=== PATIENT | female | born 1945 | race Caucasian/White ===

== ENCOUNTER 2022-09-21 06:57 | Outpatient (CLI) | payer MEDICARE ==
[~2022-09-21] VITALS: Ht 167.6 cm; Wt 61.4 kg
== END 2022-09-21 11:55 ==
LOC: PREOP 06:57
PROVIDERS: ATTEND Specialist
DX: Z01.818 Encounter for other preprocedural examination (principal)

== ENCOUNTER 2022-09-30 11:54 | Outpatient (CLI) | payer MEDICARE | END 2022-10-04 09:17 | disposition home or self-care (01) | LOC: PREOP 11:54 | PROVIDERS: ATTEND Specialist | DX: Z01.818 Encounter for other preprocedural examination (principal) ==

== ENCOUNTER 2022-10-07 09:05 | Day surgery (SDC) | payer MEDICARE ==
[~2022-10-07] VITALS: Ht 167 cm; Wt 61.4 kg
[2022-10-07] MEDS: TETRACAINE 0.5% OPHTH SOLN 4 ML BTL (SINGLE DOSE ONLY) OU PRN ×4 (09:11→09:30)
[2022-10-07 09:15] VITALS: BP 139/69
[2022-10-07] MEDS ORDERED: POVIDONE IODINE OPHTH SOLN 5% 30 ML OP ONE (09:15)
[2022-10-07] MEDS ORDERED: LIDOCAINE PF 1% 2 ML VIAL IR PRN (09:15)
[2022-10-07] MEDS ORDERED: TIMOLOL 0.5% (CATARACTS) 0.3 ML BTL OU PRN (09:15)
[2022-10-07] MEDS ORDERED: MOXIFLOXACIN OPHTH SOLN 5 MG/ML 0.3 ML SYRINGE OP ONE (09:15)
[2022-10-07] MEDS: TROPICAMIDE 1% OPH SOLN (MYDRIACYL) 15 ML BTL OP SCH ×3 (09:17→09:30)
[2022-10-07] MEDS: PHENYLEPHRINE 10% OPHTH SOLN 5 ML BTL OU SCH ×3 (09:17→09:30)
--- NOTE | 2022-10-07 09:51 | Ophthalmologist Pre-Op Note ---
Pre-Operative Progress Note H&P Reviewed The H&P was reviewed, patient examined and no changes noted. Date H&P Reviewed: Oct 07, 2022 Time H&P Reviewed: 09:51 Pre-Op Dx Cataract, Left Eye CAMILLE HENNESSY MD Oct 07, 2022 09:51
[2022-10-07] MEDS ORDERED: MIDAZOLAM INJ 2 MG/2 ML VIAL ONE (09:56)
[2022-10-07 10:22] VITALS: BP 139/59
--- NOTE | 2022-10-07 13:56 | Anesthesia-General Post-Op ---
MAC Patient Condition Mental Status/LOC: Same as Preop Cardiovascular: Satisfactory Nausea/Vomiting: Absent Respiratory: Satisfactory Pain: Controlled Complications: Absent Post Op Complications Complications None Follow Up Care/Instructions Patient Instructions None needed. Anesthesiology Discharge Order Discharge Order Patient is doing well, no complaints, stable vital signs, no apparent adverse anesthesia problems. No complications reported per nursing. ANNIE STROUD CRNA Oct 07, 2022 13:56
--- NOTE | 2022-10-28 01:08 | OPERATIVE REPORT ---
DATE OF SERVICE: 10/07/2022 PREOPERATIVE DIAGNOSIS: Combined cataract, left eye. POSTOPERATIVE DIAGNOSIS: Combined cataract, left eye. PROCEDURE: Phacoemulsification with intraocular lens. ANESTHESIA: Topical with IV sedation. COMPLICATIONS: None. DESCRIPTION OF PROCEDURE: An informed consent was obtained from the patient and placed on the chart. The pupil was dilated and the patient was taken to the operating room and placed in a supine position on the operating table. They were prepped and draped in the usual sterile fashion. A wire lid speculum was placed. A paracentesis was made at the left hand position. Preservative-free lidocaine was injected into the anterior chamber, followed by viscoelastic. A clear corneal incision was then made in the temporal position with a 2.75 mm keratome. A capsulorrhexis was then made. Hydrodissection was carried out and the nucleus was removed by phacoemulsification. The cortex was then aspirated. The anterior chamber was refilled with viscoelastic an Donis model [id number], 16.0 diopter lens was placed into the capsular bag. The residual viscoelastic was aspirated. The anterior chamber was refilled with balanced salt saline and moxifloxacin was injected. The wounds were checked and found to be watertight. The wire lid speculum and surgical drapes were removed. The patient tolerated the procedure well and was taken to the recovery room in stable condition. Job ID: [id number] DocumentID: [id number] Dictated Date: 10/27/2022 17:54:34 Spooling Supervisor Date: 10/28/2022 01:06:00 Dictated By: CAMILLE HENNESSY MD
== END 2022-10-07 10:24 | disposition home or self-care (01) ==
LOC: SDC 09:05
PROVIDERS: ATTEND Specialist
DX: H25.812 Combined forms of age-related cataract, left eye (principal); Z87.891 Personal history of nicotine dependence
CPT/HCPCS: 66984; V2632